=== PATIENT | male | born 1955 | race Caucasian/White ===

== ENCOUNTER 2018-06-01 14:59 | Inpatient (IN) | payer MEDICARE, MEDICAID ==
[~2018-06-01] VITALS: Ht 177.8 cm; Wt 77.7 kg
[2018-06-01 16:44] LABS: Basophils # (auto) 0 uL; Basophils % (auto) 0.4 % (0.0-2.0); Eosinophils # (auto) 0.1 uL; Eosinophils % (auto) 0.7 % (0.0-7.0); Hematocrit 37.9 % (41.0-53.0); Hemoglobin 12.7 g/dL (13.5-17.5); Lymphocytes # (auto) 1.2 uL; Lymphocytes % (auto) 11.8 % (10.0-50.0); Mean Corpuscular Hemoglobin 30.6 pg (28.0-32.0); Mean Corpuscular Hgb Conc. 33.6 g/dL (32.0-36.0); Mean Corpuscular Volume 91.3 fL (80.0-100.0); Monocytes # (auto) 1.4 uL; Monocytes % (auto) 14.3 % (0.0-12.0); Neutrophils # (auto) 7.3 uL; Neutrophils % (auto) 72.8 % (37.0-80.0); Platelet Count (auto) 353 10^3/uL (140-450); Red Blood Cells 4.15 10^6/uL (4.5-5.90); Red Cell Distribution Width 14.9 % (11.8-14.3)
[2018-06-01 17:07] LABS: Alanine Aminotransferase 12 U/L (16-61); Albumin 2.8 g/dL (3.4-5.0); Alkaline Phosphatase 80 U/L (45-117); Anion Gap 8 (5-15); Aspartate Aminotransferase 11 U/L (15-37); BUN/Creatinine Ratio 12.1; Bilirubin, Total 0.3 mg/dL (0.2-1.0); Blood Urea Nitrogen 11 mg/dL (7-18); Calcium 8.2 mg/dL (8.5-10.1); Carbon Dioxide 23 mmol/L (21-32); Chloride 104 mmol/L (98-107); GFR African American 108 mL/min; GFR Non-African American 89 mL/min; Glucose 99 mg/dL (74-106); Magnesium 2.7 mg/dL (1.6-2.6); Sodium 135 mmol/L (136-145); Total Protein 7.7 g/dL (6.4-8.2)
[2018-06-01] MEDS ORDERED: SODIUM CHLORIDE 0.9% 1,000 ML IV ONE ×2 (17:58)
[2018-06-01] MEDS ORDERED: ASPirin 81 mg TAB PO ONE (18:00)
[2018-06-01] MEDS ORDERED: MORPHINE SULFATE 4 MG/ML SYR/VIAL IV ONE (18:00)
[2018-06-01] MEDS ORDERED: ONDANSETRON HCL 4 MG/2 ML VIAL IV ONE (18:00)
[2018-06-01] MEDS ORDERED: ONDANSETRON HCL 4 MG/2 ML VIAL IV PRN (21:30)
[2018-06-01] MEDS ORDERED: DOCUSATE SOD 100 MG CAP PO PRN (21:30)
[2018-06-01] MEDS ORDERED: ACETAMINOPHEN 325 MG TAB PO PRN (21:30)
[2018-06-01] MEDS ORDERED: MORPHINE SULF INJ 2 MG/ML SYRINGE 1ML IV PRN (21:30)
[2018-06-01] MEDS ORDERED: TEMAZEPAM 15 MG CAP PO PRN (21:30)
[2018-06-01] MEDS ORDERED: NITROGLYCERIN 0.4 MG SL TAB SL PRN (21:30)
[2018-06-02] VITALS (9 sets, daily range): BP systolic 103–118; BP diastolic 48–76
[2018-06-02] MEDS: FAMOTIDINE 20 MG TAB PO SCH ×3 (00:14→21:15)
[2018-06-02] MEDS ORDERED: ACET120S38 PR (02:18)
[2018-06-02 04:36] LABS: Hematocrit 33.7 % (41.0-53.0); Hemoglobin 11.3 g/dL (13.5-17.5); Mean Corpuscular Hemoglobin 30.6 pg (28.0-32.0); Mean Corpuscular Hgb Conc. 33.6 g/dL (32.0-36.0); Mean Corpuscular Volume 91.3 fL (80.0-100.0); Platelet Count (auto) 283 10^3/uL (140-450); Red Blood Cells 3.69 10^6/uL (4.5-5.90); Red Cell Distribution Width 14.8 % (11.8-14.3); White Blood Cell 6.5 10^3/uL (4.4-10.8)
[2018-06-02 05:01] LABS: Albumin 2.4 g/dL (3.4-5.0); BUN/Creatinine Ratio 14.5; Potassium 4.5 mmol/L (3.5-5.1)
[2018-06-02 05:04] LABS: Bilirubin, Total 0.3 mg/dL (0.2-1.0); Total Protein 5.9 g/dL (6.4-8.2)
[2018-06-02 05:16] LABS: Band Neutrophils % (manual) 0; Basophils % (manual) 0 (0.0-2.0); Blast Cells 0; Metamyelocytes % 0; Myelocytes % 0; Promyelocytes % 0; Reactive Lymphocytes 0
[2018-06-02] MEDS: ENOXAPARIN SOD 40 MG/0.4 ML SYRINGE SC SCH (09:35)
[2018-06-02] MEDS ORDERED: ASPirin 81 mg TAB PO SCH (10:00)
[2018-06-02] MEDS: PIPERACILLIN-TAZOB 3.375GM 100 ML IV SCH ×2 (12:56→17:55)
[2018-06-02 13:23] LABS: Eosinophils % (manual) 4 (0-7); Lymphocytes % (manual) 12 (10.0-50.0); Monocytes % (manual) 12 (0-12)
[2018-06-02] MEDS: guaiFENesin-DM 100/10mg/5ml SYR PO PRN ×2 (13:43→17:55)
[2018-06-02] MEDS: HYDROcodone-ACET 5/325MG TAB PO PRN (21:16)
[2018-06-03] MEDS: PIPERACILLIN-TAZOB 3.375GM 100 ML IV SCH ×5 (00:40→23:58)
[2018-06-03] MEDS: guaiFENesin-DM 100/10mg/5ml SYR PO PRN ×4 (01:16→21:14)
[2018-06-03] MEDS: HYDROcodone-ACET 5/325MG TAB PO PRN (04:36)
[2018-06-03 05:00] VITALS: BP 108/62
[2018-06-03 06:09] LABS: Calcium 7.9 mg/dL (8.5-10.1); Magnesium 2.3 mg/dL (1.6-2.6); Potassium 4.2 mmol/L (3.5-5.1)
[2018-06-03 06:12] LABS: BUN/Creatinine Ratio 10.2
[2018-06-03 07:19] VITALS: BP 108/62
[2018-06-03 09:00] VITALS: BP 128/69
[2018-06-03] MEDS: FAMOTIDINE 20 MG TAB PO SCH ×2 (09:25→21:14)
[2018-06-03] MEDS: ENOXAPARIN SOD 40 MG/0.4 ML SYRINGE SC SCH (09:25)
[2018-06-03] MEDS: ASPirin 81 mg TAB PO SCH (09:26)
[2018-06-03 13:00] VITALS: BP 114/63
[2018-06-03 17:00] VITALS: BP 90/46
[2018-06-03 22:00] VITALS: BP 138/78
[2018-06-04 05:00] VITALS: BP 109/62
[2018-06-04] MEDS: PIPERACILLIN-TAZOB 3.375GM 100 ML IV SCH ×3 (06:29→17:18)
[2018-06-04 09:00] VITALS: BP 111/66
[2018-06-04 09:00] LABS: INR 1.16 (0.9-1.15); Partial Thromboplastin Time 30.6 sec (23.78-33.04); Prothrombin Time 12.3 sec (9.27-12.13)
[2018-06-04] MEDS: ENOXAPARIN SOD 40 MG/0.4 ML SYRINGE SC SCH (10:00)
[2018-06-04] MEDS: FAMOTIDINE 20 MG TAB PO SCH ×2 (10:00→22:23)
[2018-06-04] MEDS: ASPirin 81 mg TAB PO SCH (10:00)
[2018-06-04] MEDS ORDERED: LIDOCAINE 2% (LOCAL ANESTH.) PF 5ml SDV ONE ×2 (11:02→11:04)
[2018-06-04] MEDS ORDERED: EPINEPHrine HCL 1 MG/1 ML AMP ONE (11:03)
[2018-06-04] MEDS ORDERED: LIDOCAINE HCL 2% TOP JELLY 5ML TOP ONE (11:03)
[2018-06-04] MEDS ORDERED: SODIUM CHLORIDE LOCK 20 ML ONE (11:03)
[2018-06-04] MEDS ORDERED: GLYCOPYRROLATE 0.2 MG/ML 1ML VIAL ONE (11:04)
[2018-06-04 13:00] VITALS: BP_SYST 145; BP_SYST 98; BP_DIAS 56; BP_DIAS 94
[2018-06-04] MEDS ORDERED: SUCCINYLCHOLINE CHLORIDE 20 MG/ML 10ML VIAL IV ONE (13:58)
[2018-06-04] MEDS ORDERED: MEPERIDINE HCL (50 MG/ML) 1 ML VIAL ONE (14:01)
[2018-06-04] MEDS ORDERED: fentaNYL CITRATE 100 MCG/2 ML VL ONE (14:01)
[2018-06-04] MEDS ORDERED: MIDAZOLAM HCL 1MG/1ML-2 ML VIAL ONE (14:01)
[2018-06-04] MEDS ORDERED: DEXAMETHASONE SOD PHOS 10MG/1ML VIAL INJ ONE (14:18)
[2018-06-04] MEDS ORDERED: PROPOFOL 10 MG/ML 20 ML IV ONE (14:18)
[2018-06-04] MEDS ORDERED: ONDANSETRON HCL 4 MG/2 ML VIAL IV ONE (15:00)
[2018-06-04] MEDS ORDERED: IPRATROPIUM BROM 0.5 MG/2.5ML INH SOL NEB ONE (15:00)
[2018-06-04] MEDS ORDERED: MORPHINE SULFATE 4 MG/ML SYR/VIAL IV PRN (15:00)
[2018-06-04] MEDS ORDERED: LABETALOL HCL 5 MG/ML 4ML SYRINGE IV PRN (15:00)
[2018-06-04] MEDS ORDERED: KETOROLAC TROMETH 30 MG/ML 1ML VIAL IV ONE (15:00)
[2018-06-04] MEDS ORDERED: MIDAZOLAM HCL 1MG/1ML-2 ML VIAL IV PRN (15:00)
[2018-06-04] MEDS ORDERED: ePHEDrine SULFATE 50 MG/ML AMP IV PRN (15:00)
[2018-06-04] MEDS ORDERED: ALBUTEROL SULF 2.5 MG/0.5ML(0.5%) NEB SOLN NEB ONE (15:00)
[2018-06-04] MEDS ORDERED: MORPHINE SULF INJ 2 MG/ML SYRINGE 1ML IV ONE (16:00)
[2018-06-04] MEDS: ALBUTEROL SULF 2.5 MG/0.5ML(0.5%) NEB SOLN NEB SCH (18:00)
[2018-06-04] MEDS ORDERED: DIGOXIN (250MCG/ML) 2 ML AMPULE ONE (19:29)
[2018-06-04] MEDS ORDERED: DIGOXIN (250MCG/ML) 2 ML AMPULE IV ONE ×2 (19:30→20:00)
[2018-06-04 20:00] VITALS: BP 103/73
[2018-06-04 23:37] VITALS: BP 103/73
[2018-06-05 00:01] VITALS: BP 106/57
[2018-06-05] MEDS: PIPERACILLIN-TAZOB 3.375GM 100 ML IV SCH ×4 (00:25→18:17)
[2018-06-05] MEDS: ALBUTEROL SULF 2.5 MG/0.5ML(0.5%) NEB SOLN NEB SCH ×3 (02:00→18:00)
[2018-06-05 04:00] VITALS: BP 107/58
[2018-06-05 05:23] LABS: Basophils # (auto) 0 uL; Eosinophils # (auto) 0 uL; Hematocrit 37.5 % (41.0-53.0); Hemoglobin 12.6 g/dL (13.5-17.5); Lymphocytes # (auto) 0.7 uL; Lymphocytes % (auto) 10.1 % (10.0-50.0); Mean Corpuscular Hemoglobin 30.5 pg (28.0-32.0); Mean Corpuscular Hgb Conc. 33.7 g/dL (32.0-36.0); Mean Corpuscular Volume 90.7 fL (80.0-100.0); Monocytes # (auto) 0.3 uL; Monocytes % (auto) 4.8 % (0.0-12.0); Neutrophils # (auto) 5.7 uL; Neutrophils % (auto) 85.1 % (37.0-80.0); Platelet Count (auto) 276 10^3/uL (140-450); Red Blood Cells 4.13 10^6/uL (4.5-5.90); Red Cell Distribution Width 14.6 % (11.8-14.3); White Blood Cell 6.7 10^3/uL (4.4-10.8)
[2018-06-05] MEDS ORDERED: SODIUM CHLORIDE 0.9 % NEB SOLN 3ML NEB ONE ×2 (05:28→10:10)
[2018-06-05 05:35] LABS: BUN/Creatinine Ratio 14.5; Calcium 8.3 mg/dL (8.5-10.1); Potassium 4.5 mmol/L (3.5-5.1)
[2018-06-05] MEDS: guaiFENesin-DM 100/10mg/5ml SYR PO PRN (06:10)
[2018-06-05 07:30] VITALS: BP 110/54
[2018-06-05] MEDS: ENOXAPARIN SOD 40 MG/0.4 ML SYRINGE SC SCH (09:32)
[2018-06-05] MEDS: ASPirin 81 mg TAB PO SCH (09:32)
[2018-06-05] MEDS: FAMOTIDINE 20 MG TAB PO SCH ×2 (09:32→22:37)
[2018-06-05] MEDS ORDERED: HYDROcodone-ACET 5/325MG TAB PO PRN (11:15)
[2018-06-05 11:49] VITALS: BP 110/57
[2018-06-05 22:00] VITALS: BP 114/55
[2018-06-06] MEDS: PIPERACILLIN-TAZOB 3.375GM 100 ML IV SCH ×4 (00:49→18:00)
[2018-06-06] MEDS: ALBUTEROL SULF 2.5 MG/0.5ML(0.5%) NEB SOLN NEB SCH (02:00)
[2018-06-06 05:00] VITALS: BP 113/66
[2018-06-06] MEDS: guaiFENesin-DM 100/10mg/5ml SYR PO PRN ×3 (05:46→15:14)
[2018-06-06 07:15] LABS: BUN/Creatinine Ratio 20.2; Calcium 8.2 mg/dL (8.5-10.1)
[2018-06-06 07:19] LABS: Basophils # (auto) 0 uL; Basophils % (auto) 0.1 % (0.0-2.0); Eosinophils # (auto) 0 uL; Eosinophils % (auto) 0.1 % (0.0-7.0); Hematocrit 35.6 % (41.0-53.0); Hemoglobin 11.7 g/dL (13.5-17.5); Lymphocytes # (auto) 1.2 uL; Lymphocytes % (auto) 10.7 % (10.0-50.0); Mean Corpuscular Hemoglobin 29.7 pg (28.0-32.0); Mean Corpuscular Hgb Conc. 32.8 g/dL (32.0-36.0); Mean Corpuscular Volume 90.7 fL (80.0-100.0); Monocytes # (auto) 1.1 uL; Monocytes % (auto) 9.7 % (0.0-12.0); Neutrophils # (auto) 8.9 uL; Neutrophils % (auto) 79.4 % (37.0-80.0); Platelet Count (auto) 286 10^3/uL (140-450); Red Blood Cells 3.93 10^6/uL (4.5-5.90); Red Cell Distribution Width 14.4 % (11.8-14.3); White Blood Cell 11.2 10^3/uL (4.4-10.8)
[2018-06-06 08:30] VITALS: BP 126/70
[2018-06-06] MEDS: ENOXAPARIN SOD 40 MG/0.4 ML SYRINGE SC SCH (09:55)
[2018-06-06] MEDS: FAMOTIDINE 20 MG TAB PO SCH (09:55)
[2018-06-06] MEDS ORDERED: LEVO750T2 PO (10:50)
[2018-06-06] MEDS ORDERED: ALBUAER3 IN (10:50)
[2018-06-06] MEDS ORDERED: SACC250C PO (10:50)
[2018-06-06 13:00] VITALS: BP 146/71
[2018-06-06 17:37] VITALS: BP 110/63
== END 2018-06-06 18:52 | disposition home health service (06) | DRG 180 ==
LOC: ER 14:59 → TELE 15:00 → TELE-WESTW 23:03 → DOU IN ICU 06-04 16:50 → TELE-WESTW 06-05 17:17
PROVIDERS: ADMIT Nurse Practitioner; ATTEND Internal Medicine
PROC: 0BB78ZX Excision of Left Main Bronchus, Via Natural or Artificial Opening Endoscopic, Diagnostic (ICD-10-PCS; principal; 2018-06-04 13:53)
DX: C34.02 Malignant neoplasm of left main bronchus (principal); J96.00 Acute respiratory failure, unspecified whether with hypoxia or hypercapnia; J98.19 Other pulmonary collapse; E44.0 Moderate protein-calorie malnutrition; I24.9 Acute ischemic heart disease, unspecified; J43.2 Centrilobular emphysema; I10 Essential (primary) hypertension; Z87.01 Personal history of pneumonia (recurrent); Z68.24 Body mass index [BMI] 24.0-24.9, adult; Z80.3 Family history of malignant neoplasm of breast; Z87.891 Personal history of nicotine dependence
CPT/HCPCS: 36415; 36600; 71045; 71046; 71250; 80048; 80053; 82805; 83735; 84484; 85007; 85025; 85027; 85610; 85730; 86850; 86900; 86901; 87040; 87070; 87081; 87205; 93005; 93306; 94640; 94761; 96361; 96372; 96374; 96375; J0171; J0330; J1100; J2001; J2250; J2405; J2543; J2704